=== PATIENT | female | born 1950 | race Caucasian/White ===

== ENCOUNTER 2018-08-11 09:11 | Observation (INO) | payer OTHER ==
[~2018-08-11] VITALS: Ht 165.1 cm; Wt 98.4 kg
[2018-08-11] MEDS ORDERED: TRAMADOL 50 MG50 MG PO (09:26)
[2018-08-11 09:36] LABS: MCH 29.2 pg (26.0-34.0); MCHC 33.4 g/dL (28.0-37.0); MCV 87.3 fL (80.0-100.0); MPV 8.6 fl. (7.2-11.1); RBC 4.47 mil/uL (4.20-5.00); RDW-CV 15.1 % (10.5-14.5); WBC 8.8 thou/uL (4.0-11.0)
[2018-08-11 09:59] LABS: CREATININE 0.6 mg/dL (0.6-1.3); POTASSIUM 4.1 mmol/L (3.5-5.1)
[2018-08-11 10:20] LABS: ALBUMIN 3.3 g/dL (3.4-5.0); TOTAL BILIRUBIN 0.3 mg/dL (<0.1-1.0); TOTAL PROTEIN 7.4 g/dL (6.4-8.2)
--- NOTE | 2018-08-11 16:47 | EKG ---
[place] [address] ELECTROCARDIOGRAM REPORT Name: ROMINA CORDERO Room: [facility]#: [id number] Admission: 08/11/18 Attend Phys: Jason Snider II Discharge: Date of : 52 Report #: [id number] THIS REPORT FOR: //name// [facility] Test Date: 2018-08-11 Test Time: 09:33:48 Pat Name: ROMINA CORDERO Department: Room: Gender: F Android Ui Developer: : 1950 Requested By: Jason Snider Order Number: [id number] Reading MD: Matt Chong Measurements Intervals [place] Rate: 59 P: 58 SC: 170 QRS: 18 QRSD: 96 T: 20 QT: 391 QTc: 388 Interpretive Statements Sinus rhythm No previous ECG available for comparison Electronically Signed On 08-11-2018 16:47:29 CLOSET ORGANIZER by Matt Chong [email or web address] <ELECTRONICALLY SIGNED> By: Matt Chong MD, [facility] 08/11/18 1647 [id number] [id number] Matt Chong MD, FACC /EPI
[2018-08-11 19:04] VITALS: BP 148/48
[2018-08-11 20:00] VITALS: BP 124/40
--- NOTE | 2018-08-11 23:42 | NUR ---
1930 ASSUMED CARE OF PATIENT WITH REPORT FROM PACU NURSE. PATIENT IN ALERT AND ORIENTED X 4. HAS BEEN UP TO BR ON ARRIVAL TO UNIT TO VOID. RIGHT ARM PROPERLY IN IMMOBILIZER WITH PRESENT. SCD'S ON WHILE IN BED. CONTINUOUS OXIMITRY. VITAL SIGNS STABLE. NOTE ORDERED PAIN MEDICATION FOR FLOOR IS NOT WHAT WAS EFFECTIVE IN PACU. WILL NOTIFY PHYSICIAN. ADMISSION ROUTINES IN PROGRESS. SON TO STAY THE NIGHT AT BEDSIDE. CONTINUE TO MONITOR.
[2018-08-12 00:23] VITALS: BP 125/53
[2018-08-12 01:16] VITALS: BP 125/53
[2018-08-12] MEDS ORDERED: NORCO 5-325 TA1 EACH PO (01:35)
[2018-08-12 03:50] VITALS: BP 136/59
--- NOTE | 2018-08-12 04:41 | NUR ---
PATIENT HAS REMAINED ALERT AND ORIENTED X 4 THROUGHOUT THE SHIFT AND RESTING QUIETLY ON HOURLY ROUNDS. UP TO BR FOR ADEQUATE VOIDS. TRANSFERING WITH SBA. RUE IMMOBILIZER MAINTAINED. RIGHT UPPER ARM DRESSING CLEAN AND DRY. CIRCULATION AND SENSATION REMAIN INTACT OF MOBILE RIGHT HAND. O2 WAS APPLIED AT FIRST ROUNDS FOR ROOM AIR SAT 88%. CONTINUOUS OXIMETRY OVERNIGHT. SATS WITHIN NORMAL LIMITS THEREAFTER. RT TREATMENTS SCHEDULED PER ORDERS. MEDICATED FOR PAIN X 4 OF THIS WRITING USING BOTH IV AND ORAL MEDICATION. PATIENT RESTING WELL BETWEEN DOSES BUT PAIN LEVELS 6-10/10 PRIOR TO INTERVENTION. NO NAUSEA WITH FOOD AND FLUIDS. VITAL SIGNS STABLE. SON AT BEDSIDE. CONTINUE TO MONITOR.
[2018-08-12 05:19] LABS: HEMATOCRIT 33.3 % (37.0-47.0); HEMOGLOBIN 11.1 gm/dL (12.0-15.0); MCH 29.3 pg (26.0-34.0); MCHC 33.1 g/dL (28.0-37.0); MCV 88.3 fL (80.0-100.0); RBC 3.78 mil/uL (4.20-5.00); RDW-CV 14.7 % (10.5-14.5); WBC 9.8 thou/uL (4.0-11.0)
[2018-08-12 05:37] LABS: ALBUMIN 2.7 g/dL (3.4-5.0); CALCIUM 8.1 mg/dL (8.5-10.1); CREATININE 0.6 mg/dL (0.6-1.3); POTASSIUM 4.1 mmol/L (3.5-5.1); TOTAL BILIRUBIN 0.3 mg/dL (<0.1-1.0); TOTAL PROTEIN 6.1 g/dL (6.4-8.2)
[2018-08-12] MEDS ORDERED: SCOPOLAMINE1 EACH TRANSDERM (07:33)
[2018-08-12] MEDS ORDERED: ZOFRAN ODT4 MG PO (07:33)
[2018-08-12] MEDS ORDERED: TRAMADOL 50 MG50 MG PO (07:33)
[2018-08-12 07:56] VITALS: BP 99/39
[2018-08-12 10:04] VITALS: BP 99/39
[2018-08-12 11:01] VITALS: BP 99/39
--- NOTE | 2018-08-12 11:05 | NUR ---
PT GIVEN DISCHARGE INFORMATION. PRESCRIPTIONS AND CARE NOTES GIVEN TO PT. PT DENIED ANY FURTHER QUESTIONS OR CONCERNS AT THIS TIME. IV REMOVED. HOURLY ROUDING COMPLETED. PT LEFT VIA WHEELCHAIR WITH NURSING STAFF TO HOME CARE WITH SON.
--- NOTE | 2018-08-12 16:58 | NUR ---
REVIEWED AND AGREE WITH ALL CHARTING AND ASSESSMENTS COMPLETED BY ELIJAH Mojica RN
--- NOTE | 2018-08-18 10:41 | OP ---
[address] [address] OPERATIVE REPORT Name: CONSUELOROMINA Room: [address] Nayan#: [id number] Admission: 08/11/18 Attend Phys: Radha Diaz MD Discharge: 08/12/18 Date of : 52 Report #: [id number] THIS REPORT FOR: //name// CC: Radha Diaz Physician staff Jason Snider DATE OF SERVICE: 08/11/2018 PREOPERATIVE DIAGNOSIS: Right proximal humerus fracture, greater than 4 parts. POSTOPERATIVE DIAGNOSIS: Right proximal humerus fracture, greater than 4 parts. PROCEDURE PERFORMED: Open reduction and internal fixation of right proximal humerus fracture, greater than 4 parts. SURGEON: Jason Snider II, DO. COLLABORATING SUPERVISING PHYSICIAN: EROS Cespedes. ANESTHESIA: Per operative record. ESTIMATED BLOOD LOSS: Minimal. ANTIBIOTICS: Per operative record. DRAINS: None. COMPLICATIONS: None. CONDITION: The patient is stable to recovery room. IMPLANTS USED: Shirley proximal humerus plate with locking and nonlocking screws. BRIEF HISTORY: The patient was seen in the office prior to surgery as well as in the preoperative area. The patient did have noted weakness to the deltoid as well as weakness with arm and wrist extension due to her fracture, which has been present since her injury. The patient was discussed that she may have continued weakness in this muscle and shoulder despite operative fixation of her fracture fragments due to muscle or nerve injury from her accident injury and fracture. The patient assumed all risks. Family was educated on this as well and assumed the risks and wished to proceed. DESCRIPTION OF PROCEDURE: The patient was taken to the operative suite, placed supine on the operative table, given appropriate anesthesia. The patient's [place] [id number] OPERATIVE REPORT Name: CONSUELOROMINA Room: [address] Diego Spicer#: [id number] Admission: 08/11/18 Attend Phys: Radha Diaz MD Discharge: 08/12/18 Date of : 52 Report #: [id number] affected shoulder was sterilely prepped and draped in the modified beach chair position and all bony prominences well padded. Surgery began by an anterior incision over the right proximal humerus. This was carried down through the subcutaneous tissues. Careful deltopectoral incision was then made to protect the cephalic vein in this region and the deltoid was reflected laterally with retractors in order to expose the humeral head and proximal humerus fracture. Utilizing C-arm, the fragments were open reduced back into appropriate alignment. These have been held with pin fixation. The plate was then affixed to the lateral aspect just posterior to the biceps groove and checked with C-arm in both internal and external rotation to make it was within the central portion of the humeral head and along the alignment of the shaft. Alignment was near anatomic and the appropriate locking and nonlocking screws was then placed through the plate into the fracture fragments. This was then taken through range of motion utilizing a C-arm to confirm all screws within the humeral head and shaft of the humerus and the fracture fragments were in near anatomic alignment. Careful hemostasis was maintained with electrocautery. The deltopectoral incision was then irrigated excess bloody debris from the fracture hematoma. Deltopectoral incision was then closed utilizing #1 Vicryl in running fashion. The skin was then closed with 2-0 Vicryl and a running Monocryl stitch. Dermabond and sterile dressing and shoulder immobilizer were applied. Local pain cocktail was injected. The patient was transported to recovery room in stable condition. Counts were correct throughout the procedure. <ELECTRONICALLY SIGNED> By: Jason Snider II, DO 08/18/18 1041 [id number] Snider II, DO /nt
== END 2018-08-12 11:07 | disposition home or self-care (01) ==
LOC: M.SUR 09:11 → M.ORTHSURG 09:11 → M.SUR 16:17 → M.ORTHSURG 18:27 → M.SUR 18:27 → M.ORTHSURG 08-12 11:07
PROVIDERS: Orthopaedic Surgery; ADMIT Internal Medicine
DX: S42.201A Unspecified fracture of upper end of right humerus, initial encounter for closed fracture (principal); K75.9 Inflammatory liver disease, unspecified; R52 Pain, unspecified; F17.210 Nicotine dependence, cigarettes, uncomplicated; X58.XXXA Exposure to other specified factors, initial encounter; Y93.89 Activity, other specified; Y92.89 Other specified places as the place of occurrence of the external cause; Y99.8 Other external cause status; Z98.890 Other specified postprocedural states; Z79.899 Other long term (current) drug therapy